=== PATIENT | female | born 1985 | race Caucasian/White ===

== ENCOUNTER 2017-12-22 06:50 | Day surgery (SDC) | payer OTHER ==
[~2017-12-22 06:50] MED LIST: ATENOLOL50 MG PO; LOSARTAN-HCTZ1 EAC1 PO; METFORMIN PO; TENORMIN50 M1 PO
== END 2017-12-22 16:10 | disposition home or self-care (01) ==
LOC: CIR.AMB 06:50
DX: G56.01 Carpal tunnel syndrome, right upper limb (principal); M13.841 Other specified arthritis, right hand